=== PATIENT | male | born 1965 | race Caucasian/White ===

== ENCOUNTER → 2017-01-22 | Outpatient (CLI) | payer OTHER ==
[~2017-01-22] MED LIST: AFRIN3 ML; BAYER ASPIRIN325 M1 PO; DESYREL100 MG PO; GLUCOPHAGE500 MG PO; LEVOTHYROXINE75 MC1 PO; NEURONTIN300 MG PO; NORCO 7.5-3251 EACH PO; PERCOCET 10/3251 TAB PO; ZANAFLEX4 M1 PO
--- NOTE | ~2017-01-22 | EKG ---
PATIENT: QIAN WARD UNIT #: [id number] Ventricular Rate: 73 BPM Atrial Rate: 73 BPM P-R Interval: 176 ms QRS Duration: 78 ms Q-T Interval: 364 ms QTC Calculation(Bezet): 401 ms P [place]: 41 degrees Calculated R [place]: 75 degrees Calculated T [place]: 65 degrees Diagnosis Line: Poor data quality, interpretation may be Diagnosis Line: adversely affected Diagnosis Line: Normal sinus rhythm Diagnosis Line: Normal ECG Diagnosis Line: No previous ECGs available Diagnosis Line: Confirmed by MIKE HUDDLESTON MD ([id number]) on Diagnosis Line: 01/22/2017 2:28:35 PM INTERPRETING MD: FLAQUITO WHITE
[2017-01-22 11:21] LABS: BLOOD UREA NITROGEN 16 mg/dL (9-23); BUN/CREATININE RATIO 13.33; CALCIUM SERUM 10.5 mg/dL (8.4-10.2); CARBON DIOXIDE 27 mmol/L (22-31); CHLORIDE 102 mmol/L (100-111); CREATININE SERUM 1.2 mg/dL (0.6-1.4); GLOM FILT RATE Estimated ABOVE60 mL/min (>60); GLUCOSE FASTING 151 mg/dL (70-110); POTASSIUM 4.3 mmol/L (3.5-5.1); SODIUM 140 mmol/L (135-145)
== END | disposition home or self-care (01) ==
LOC: CAMB 09:15
PROVIDERS: Orthopaedic Surgery
DX: Z01.818 Encounter for other preprocedural examination (principal); T87.89 Other complications of amputation stump; M79.652 Pain in left thigh; Z89.612 Acquired absence of left leg above knee
CPT/HCPCS: 36415; 80048; 93005

== ENCOUNTER 2017-02-05 05:12 | Inpatient (IN) | payer OTHER ==
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
[~2017-02-05 05:12] MED LIST changes: -BAYER ASPIRIN325 M1 PO; -PERCOCET 10/3251 TAB PO
[2017-02-06 04:54] LABS: HEMATOCRIT 39.9 % (38.0-50.0); HEMOGLOBIN 13.5 gm/dL (13.0-16.0)
[2017-02-06] MEDS ORDERED: PERCOCET 10/3251 TAB PO (10:05)
[2017-02-06] MEDS ORDERED: BAYER ASPIRIN325 M1 PO (10:06)
[2017-02-06 12:22] LABS: ALBUMIN SERUM 3.6 g/dL (3.5-5.0); BILIRUBIN,TOTAL 0.7 mg/dL (0.2-2.0); BUN/CREATININE RATIO 9.09; CALCIUM SERUM 8.8 mg/dL (8.4-10.2); CREATININE SERUM 1.1 mg/dL (0.6-1.4); GLOM FILT RATE Estimated 77.3 mL/min (>60); POTASSIUM 4.3 mmol/L (3.5-5.1); PROTEIN TOTAL SERUM 6.2 g/dL (6.0-8.3)
== END 2017-02-06 10:30 | disposition home or self-care (01) | DRG 476 ==
LOC: CSUR 05:12 → CPACUOF 09:20 → C4C 11:27
PROVIDERS: Orthopaedic Surgery
PROC: 0Y6G0ZZ Detachment at Left Knee Region, Open Approach (ICD-10-PCS; principal; 2017-02-05 07:30)
DX: T87.89 Other complications of amputation stump (principal); E03.9 Hypothyroidism, unspecified; E11.9 Type 2 diabetes mellitus without complications; Z79.4 Long term (current) use of insulin; F17.210 Nicotine dependence, cigarettes, uncomplicated; G89.29 Other chronic pain
CPT/HCPCS: 80053; 82947; 83036; 84443; 85014; 85018; 94760; 97161; G8978-GP; G8979-GP; G8980-GP; J0330; J0690; J1170; J1815; J2250; J2270; J2405; J2550; J2710; J3010